=== PATIENT | male | born 1945 | race Caucasian/White ===

== ENCOUNTER 2017-02-12 15:09 | Emergency (ER) | payer OTHER ==
[~2017-02-12] VITALS: Ht 190.5 cm; Wt 104.3 kg
[~2017-02-12 15:09] MED LIST: FISH OIL CONCEN1 SGL PO; HYDRODIURIL 2525 MG PO; PRILOSEC 20MG C20 MG PO; SYNTHROID0.137 MG PO; VITAMIN C500 M3 PO; VITAMIN D1000 IU PO
--- NOTE | 2017-02-12 17:24 | ED NOSE COMPLAINT ---
History of Present Illness General Chief Complaint: Epistaxis/Nasal Foreign Body Stated Complaint: NOSEBLEEDS COUGHING UP BLOOD Source: patient Exam Limitations: no limitations Vital Signs & Intake/Output Vital Signs & Intake/Output Vital Signs Date Time Temp Pulse Resp B/P B/P Pulse O2 O2 Flow FiO2 Mean Ox Delivery Rate 02/12 1731 98.5 55 18 145/74 97 Room Air Room Air 02/12 1517 98.6 52 18 151/72 98 Room Air Allergies Coded Allergies: MDX - PCN (penicillin) (PCN (PENICILLIN)) (UNKNOWN 12/22/13) Reconcile Medications Ascorbic Acid (Vitamin C) 500 MG TAB 1 TAB PO DAILY SUPPLEMENT (Reported) Cholecalciferol (Vitamin D3) 1,000 UNIT TABLET 1 TAB PO DAILY SUPPLEMENT ( Reported) Levothyroxine Sodium (Synthroid) 0.137 MG TAB 1 TAB PO DAILY THYROID ( Reported) OMEGA-3 FATTY ACIDS (Fish Oil Concentrate) 1,000 MG CAPSULE 1 TAB PO DAILY SUPPLEMENT (Reported) Omeprazole (Prilosec) 20 MG CAPSULE.DR 40 MG PO DAILY AC GERD Triage Note: 72 YO MALE TO ER C/O NOSEBLEEDS AND COUGHING UP BLOOD. STATES HE IS ON XARELTO. DENIES SOB/PAIN. NO ACTIVE BLEEDING AT THIS TIME Triage Nurses Notes Reviewed? yes Onset: Abrupt Duration: day(s):, continues in ED, intermittent Timing: recent history Injury Environment: home No Modifying Factors: none HPI: 72-year-old male comes into emergency room for further evaluation of intermittent nosebleeds for the past 2 days. Patient was started on xraelto one month ago for A. fib. Patient reports that the bleeding has resolved at this point for the past half an hour. His right nostril. Denies any trauma. Denies any other associated symptoms. (SILVIO PHILLIP) Past History Travel History Traveled to [place] past 21 day No Medical History Any Pertinent Medical History? see below for history Neurological: NONE EENT: NONE Cardiovascular: AFIB, hypertension Respiratory: NONE Gastrointestinal: GERD Hepatic: NONE Renal: NONE Musculoskeletal: NONE Psychiatric: NONE Endocrine: HYPOTHYROIDISM Blood Disorders: NONE Cancer(s): NONE CORPORATE GENERAL MANAGER/Reproductive: NONE History of MRSA: No History of VRE: No History of CDIFF: No Surgical History Surgical History: non-contributory Psychosocial History Who do you live with Spouse Services at Home None What is your primary language Hungarian Tobacco Use: Never used Family History Family History, If Any: No Known Family History. Hx Contributory? No (SILVIO PHILLIP) Review of Systems Review of Systems Constitutional: Reports: no symptoms. EENTM: Reports: see HPI. Respiratory: Reports: no symptoms. Cardiovascular: Reports: no symptoms. GI: Reports: no symptoms. Genitourinary: Reports: no symptoms. Musculoskeletal: Reports: no symptoms. Skin: Reports: no symptoms. Neurological/Psychological: Reports: no symptoms. Hematologic/Endocrine: Reports: no symptoms. Immunologic/Allergic: Reports: no symptoms. All Other Systems: Reviewed and Negative (SILVIO PHILLIP) Physical Exam Physical Exam General Appearance: well developed/nourished, mild distress Head: atraumatic Eyes: Bilateral: normal appearance. Nose: dried blood (right nostril), no active bleeding Mouth/Throat: normal mouth inspection, pharynx normal Neck: normal inspection Cardiovascular/Respiratory: no respiratory distress Back: normal inspection Neurologic/Psych: awake, alert, oriented x 3, normal mood/affect Skin: intact, normal color, warm/dry (SILVIO PHILLIP) Progress Differential Diagnoses I considered the following diagnoses in my evaluation of the patient: Epistaxes , allergies, nasal polyp, nasal abscess, digital manipulation, trauma, Plan of Care: 02/12/2017 6:50:09 PM Patient is in no apparent distress. Patient is nontoxic-appearing. Patient resting comfortably in room. No active bleeding. Patient educated on side effects of Xarelto. 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 Return if any other concerns. Patient understands and agrees with plan of care. Initial ED EKG: none (SILVIO PHILLIP) Departure Departure Disposition: HOME OR SELF CARE Condition: Stable Clinical Impression Primary Impression: Epistaxis Referrals: JERI ENG,MANDA Kenyon (PCP/Family) Additional Instructions: Contact your split leather department supervisor. If you have another nosebleed hold compression for 20 minutes. Use Afrin nose spray. Return if any concerns worsening symptoms. Please go over all results of today's visit with your primary care doctor. Contact your primary care doctor to let them know you were here in the emergency room. There may be nonspecific findings which may not be related to your visit today here in the emergency room but may require further evaluation and chronic monitoring by your primary care doctor. If you had a laceration today the chance of foreign body always remains. You should follow-up with your primary care doctor for recheck in 3-5 days for a wound check. If you had an x-ray done there is a chance that a fracture could have been missed on initial read and you should follow-up with your primary care doctor for repeat x-rays if symptoms persist. If your blood pressure was elevated here in the emergency room please have rechecked by her primary care doctor within the next 48 hours by your primary care doctor. If you were prescribed a narcotic here in the emergency room or any type of controlled substances you're not allowed to drive while taking this medication or operate any type of heavy machinery. Narcotics can make you feel lightheaded dizziness nausea and can cause constipation. You may need to curing pickling packer a stool softener. Thank you for choosing [facility] emergency room. Please return to the emergency room immediately if you have any other concerns worsening of symptoms. Departure Forms: Customer Survey General Discharge Information (SILVIO PHILLIP) PA/ELECTRONIC DEVICE REPAIRER Co-Sign Statement Statement: ED Attending supervision documentation- x I saw and evaluated the patient. I have also reviewed all the pertinent lab results and diagnostic results. I agree with the findings and the plan of care as documented in the PA's/ELECTRONIC DEVICE REPAIRER's documentation. [] I have reviewed the ED Record and agree with the PA's/ELECTRONIC DEVICE REPAIRER's documentation. [] Additions or exceptions (if any) to the PAs/ELECTRONIC DEVICE REPAIRER's note and plan are summarized below: [] (IONA ENG,ZI)
[2017-02-12 17:31] VITALS: BP 145/74
== END 2017-02-12 17:32 ==
LOC: ERH 15:09
DX: R04.0 Epistaxis (principal)